=== PATIENT | male | born 1985 | race Caucasian/White ===

== ENCOUNTER 2019-01-06 18:04 | Emergency (ER) | payer SELFPAY ==
[2019-01-06] MEDS ORDERED: Ondansetron 4 MG/2 ML SDV IM ONE (19:11)
[2019-01-06] MEDS ORDERED: Ketorolac 60 MG/2 ML SDV IM ONE (19:11)
[2019-01-06] MEDS ORDERED: Iopamidol 755 Mg/ML 100 ML Bottle IV ONE (20:00)
--- NOTE | 2019-01-06 20:00 | EDM.PDOC ---
ED HPI GENERAL MEDICAL PROBLEM - General Chief Complaint: Abdominal Pain Stated Complaint: SHARP R SIDED PAIN Time Seen by Provider: 01/06/19 19:57 Source of Information: Reports: Patient History Limitations: Reports: No Limitations - History of Present Illness INITIAL COMMENTS - FREE TEXT/NARRATIVE: Jesu is a 33 yo male with RUQ abdominal pain x 3 days. Moderate pain , associated with 2 emesis. Radiates to the back. Nothing seems to aggravate it relief it. Had a previous episode of this nature a few weeks ago that resolved spontaneously. Rupper abdomen radiating into R flank region Pain Score (Numeric/FACES): 5 - Related Data Allergies Allergy/AdvReac Type Severity Reaction Status Date / Time No Known Allergies Allergy Verified 01/06/19 19:23 Home Meds: Home Meds NK [No Known Home Meds] 01/06/19 [History] Social & Family History - Family History Family Medical History: Noncontributory - Tobacco Use Smoking Status *Q: Current Every Day Smoker Years of Tobacco use: 10 Packs/Tins Daily: 0.5 - Caffeine Use Caffeine Use: Reports: Soda - Recreational Drug Use Recreational Drug Use: Yes Recreational Drug Type: Reports: Marijuana/Hashish Recreational Drug Use Frequency: Weekly ED ROS GENERAL - Review of Systems Review Of Systems: Comprehensive ROS is negative, except as noted in HPI. ED EXAM, GI/ABD - Physical Exam Exam: See Below Exam Limited By: No Limitations General Appearance: Alert, WD/WN, No Apparent Distress Ears: Normal External Exam Nose: Normal Inspection Respiratory/Chest: No Respiratory Distress Cardiovascular: Normal Peripheral Pulses GI/Abdominal Exam: Normal Bowel Sounds, Soft, No Distention, Tender. No: No Organomegaly, Distended, Guarding, Abnormal Bowel Sounds, Hepatomegaly, Splenomegaly Back Exam: Normal Inspection, CVA Tenderness (R), Paraspinal Tenderness. No: Vertebral Tenderness Course - Vital Signs Last Recorded V/S: Last Vital Signs Temp 98.6 F 01/06/19 18:40 Pulse 71 01/06/19 18:40 Resp 18 01/06/19 18:40 BP 134/76 01/06/19 18:40 Pulse Ox 99 01/06/19 18:40 - Orders/Labs/Meds Orders: Active Orders 24 hr Category Date Time Status Abdomen Ltd [US] Stat Exams 01/06/19 20:46 Taken Abdomen Pelvis w Cont [CT] Stat Exams 01/06/19 19:33 Taken Labs: Laboratory Tests 01/06/19 01/06/19 01/06/19 Range/Units 18:48 19:20 19:20 WBC 8.4 (4.5-12.0) X10-3/uL RBC 4.70 (4.30-5.75) x10(6)uL Hgb 13.7 (13.5-17.8) g/dL Hct 41.4 (30.0-51.3) % MCV 88.0 (80-96) fL MCH 29.1 (27.7-33.6) pg MCHC 33.1 (32.2-35.4) g/dL RDW 12.6 (11.5-15.5) % Plt Count 308 (125-369) X10(3)uL MPV 6.6 L (7.4-10.4) fL Neut % (Auto) 71.0 (46-82) % Lymph % (Auto) 20.8 (13-37) % Lee % (Auto) 6.6 (4-12) % Eos % (Auto) 2 (1.0-5.0) % Baso % (Auto) 0 (0-2) % Neut # (Auto) 5.9 (1.6-8.3) # Lymph # (Auto) 1.8 (0.6-5.0) # Lee # (Auto) 0.6 (0.0-1.3) # Eos # (Auto) 0.1 (0.0-0.8) # Baso # (Auto) 0.0 (0.0-0.2) # Sodium 141 (135-145) mmol/L Potassium 3.8 (3.5-5.3) mmol/L Chloride 106 (100-110) mmol/L Carbon Dioxide 28 (21-32) mmol/L BUN 16 (7-18) mg/dL Creatinine 0.8 (0.70-1.30) mg/dL Est Cr Clr Drug Dosing TNP Estimated GFR (MDRD) > 60 (>60) BUN/Creatinine Ratio 20.0 (9-20) Glucose 95 (80-116) mg/dL Calcium 8.8 (8.6-10.2) mg/dL Total Bilirubin 0.5 (0.1-1.3) mg/dL AST 28 H (5-25) IU/L ALT 43 H (12-36) U/L Alkaline Phosphatase 67 (56-112) IU/L Total Protein 7.6 (6.0-8.0) g/dL Albumin 3.9 (3.5-5.2) g/dL Globulin 3.7 g/dL Albumin/Globulin Ratio 1.1 Amylase 60 (25-115) U/L Urine Color Yellow (YELLOW) Urine Appearance Slightly cloudy (CLEAR) Urine pH 6.0 (5.0-6.5) Ur Specific [place] 1.025 (1.010-1.025) Urine Protein Negative (NEGATIVE) mg/dL Urine Glucose (UA) Normal (NORMAL) mg/dL Urine Ketones Negative (NEGATIVE) mg/dL Urine Occult Blood Negative (NEGATIVE) Urine Nitrite Negative (NEGATIVE) Urine Bilirubin Negative (NEGATIVE) Urine Urobilinogen Normal (NEGATIVE) mg/dL Ur Leukocyte Esterase Negative (NEGATIVE) Urine RBC 0-5 (0-5) Urine WBC 0-5 (0-5) Ur Squamous Epith Cells Rare (NS,R,O) Urine Bacteria Occasional H (NS) Meds: Medications Discontinued Medications Generic Name Dose Route Start Last Admin Trade Name Wilfridq PRN Reason Stop Dose Admin Iopamidol 100 ml 01/06/19 20:00 01/06/19 20:02 Isovue-370 (76%) IV 01/06/19 20:01 90 ml ONETIME ONE Administration Ketorolac Tromethamine 60 mg 01/06/19 19:11 01/06/19 19:25 Toradol IM 01/06/19 19:12 60 mg ONETIME ONE Administration Ondansetron HCl 4 mg 01/06/19 19:11 01/06/19 19:26 Zofran IM 01/06/19 19:12 4 mg ONETIME ONE Administration Departure - Departure Time of Disposition: 21:54 Disposition: Home, Self-Care 01 Condition: Good Clinical Impression: Cholecystitis - Discharge Information Referrals: PCP,None [Primary Care Provider] - Forms: ED Department Discharge - Problem List & Annotations (1) RUQ abdominal pain SNOMED Code(s): 992594474 Code(s): R10.11 - RIGHT UPPER QUADRANT PAIN Status: Acute Current Visit: Yes (2) Cholecystitis SNOMED Code(s): 31436474 Code(s): K81.9 - CHOLECYSTITIS, UNSPECIFIED Status: Acute Current Visit: Yes - Problem List Review Problem List Initiated/Reviewed/Updated: Yes - My Orders Last 24 Hours: My Active Orders 01/06/19 19:33 Abdomen Pelvis w Cont [CT] Stat 01/06/19 20:46 Abdomen Ltd [US] Stat - Assessment/Plan Last 24 Hours: My Active Orders 01/06/19 19:33 Abdomen Pelvis w Cont [CT] Stat 01/06/19 20:46 Abdomen Ltd [US] Stat Plan: I spoke with Dr Moss. CT showed gallstones,with acute cholecystitis. Patient able to go home on oral prain meds,see him on Friday at [address] [facility],NPO.
--- NOTE | 2019-01-07 11:30 | US ---
INDICATION: Right upper quadrant pain radiating to back. RIGHT UPPER QUADRANT/GALLBLADDER ULTRASOUND: Multiple ultrasonic images were obtained 01/06/19 and compared with earlier CT scan of the abdomen. The liver appears somewhat echogenic, suggesting fatty liver. No focal liver lesion was seen. The gallbladder is enlarged with measurements up to 10 cm in maximum diameter. A thickened wall, sludge, and tiny calculi are present. Near the neck of the gallbladder there is an echogenic focus of approximately 13 mm corresponding to a calcific rimmed density located in the gallbladder in the neck of the gallbladder area. This likely represents an impacted calculus. These findings are compatible with acute cholecystitis. There also appears to be a small amount of pericholecystic fluid. A positive ultrasonic [place] sign was also noted. The common bile duct was enlarged to at least 7.1 mm. An exact etiology for that enlargement is not identified. The pancreas was not adequately visualized on ultrasound but appears normal on the recent CT scan. No mass lesions or free fluid collections were identified. The right kidney had a normal appearance. IMPRESSION: 1. Acute cholecystitis with impacted calcific rimmed calculus measuring 13 mm at the neck of the gallbladder. 2. Somewhat dilated common bile duct, etiology indeterminate, suggest intraoperative evaluation of the common bile duct. 3. Fatty liver. Report was called to Dr. Corey Moss at 1025 hours on 01/07/19. [facility]
== END 2019-01-06 22:10 | disposition home or self-care (01) ==
LOC: FB.ED 18:04
DX: K81.9 Cholecystitis, unspecified (principal); F17.210 Nicotine dependence, cigarettes, uncomplicated
CPT/HCPCS: 36415; 74177; 76705; 80053; 81001; 82150; 85025; 96372; 99284; J1885; J2405; Q9967